=== PATIENT | male | born 1945 | race Caucasian/White ===

== ENCOUNTER → 2018-12-10 08:43 | Outpatient (CLI) | payer OTHER, SELFPAY ==
--- NOTE | 2018-12-10 | DI.ECHO.S_ITS ---
[place] [facility]---------+ [facility] +---------+ : : [address] : : : : [id number] : : : : Phone: [phone]+ Echocardiogram Report + + :Name: EZ MARTINEZ Study Date: 12/10/2018 Height: 74 in : :[facility] Exam Location: [facility] Weight: 195 lb : : Gender: Male BSA: 2.1 m2 : :: 1945 Age: 73 yrs BP: 130/72 mmHg: :Reason For Study: AFIB : : Performed By: Handy Olsen : :Referring: TANISHA HERNANDEZ : + + Interpretation Summary 1) Normal left ventricular thickness, size, wall motion, and systolic function (EF 60-65%). 2) Normal right ventricular size and function. 3) No significant valvular abnormalities. 4) No prior Echo available for comparison. Procedure: A two-dimensional transthoracic echocardiogram with color flow and Doppler was performed. The study quality was technically good. There is no prior echocardiogram noted for this patient. The patient was in normal sinus rhythm during the exam. Left Ventricle: The left ventricle is normal in size. There is normal left ventricular wall thickness. The ejection fraction is estimated to be 60-65%. There are no focal wall motion abnormalities. Right Ventricle: The right ventricle is normal in size and function. Atria: Both atria are normal in size. The interatrial septum is intact with no evidence for an atrial septal defect. Mitral Valve: The mitral valve is normal in structure and function. There is trace mitral regurgitation. Aortic Valve: The aortic valve is trileaflet. The aortic valve is mildly calcified. There is minimally reduced leaflet mobility. There is no aortic valve stenosis. There is trace aortic regurgitation. Tricuspid Valve: The tricuspid valve is normal in structure and function. There is mild tricuspid regurgitation. The right ventricular systolic pressure is estimated to be at least 30 mmHg based on an estimated right atrial pressure of 3 mm Hg. Pulmonic Valve: The pulmonic valve is normal in structure and function. There is trace pulmonic regurgitation. Great Vessels: The aortic root is normal size. The dimensions of the ascending aorta are normal. The pulmonary artery is normal size. The IVC is of normal diameter and collapses greater than 50% with a sniff. This suggests a low right atrial pressure of 3 mm Hg. Pericardium/ Pleura There is no pericardial effusion. There is no pleural effusion. MMode/2D Measurements & Calculations LVIDd: 4.9 cm LVOT diam: 2.2 cm LVIDs: 3.1 cm Ao root diam: 3.2 cm FS: 36.6 % Aortic Jxn: 2.6 cm EPSS: 0.51 cm asc Aorta Diam: 3.1 cm IVSd: 1.00 cm Ao Arch Diam (Prox Trans): 2.6 cm LVPWd: 0.72 cm LV kenyon. diameter/BSA (cm/m^2): 2.3 LV sys. diameter/BSA (cm/m^2): 1.5 LA dimension: 4.5 cm RA long axis: 4.7 cm LA A2 area: 23.3 cm2 RA area: 15.7 cm2 LA A4 area: 21.0 cm2 RA vol: 44.8 ml LA length (vol): 6.2 cm RA : 20.8 ml/m2 LA vol: 66.6 ml IVC diam: 1.4 cm LA vol index: 31.0 ml/m2 Doppler Measurements & Calculations Ao V2 max: 145.6 cm/sec LVOT Max Sarabjit: 90.5 cm/sec Ao V2 mean: 102.8 cm/sec LV V1 max P.3 mmHg Ao max P.5 mmHg LV V1 VTI: 21.4 cm Ao mean P.6 mmHg PATRICE(I,D): 2.3 cm2 Ao V2 VTI: 34.2 cm PATRICE(V,D): 2.3 cm2 sev ratio: 0.63 PATRICE indexed to BSA (cm^2/m^2): 1.1 MV E max sarabjit: 57.4 cm/sec TR max sarabjit: 257.2 cm/sec MV A max sarabjit: 58.7 cm/sec TR max P.5 mmHg MV E/A: 0.98 PA V2 max: 75.2 cm/sec Med Peak E' Sarabjit: 4.0 cm/sec PA V2 mean: 60.7 cm/sec E/E' med: 14.3 PA mean P.5 mmHg Lat Peak E' Sarabjit: 6.2 cm/sec PA pr(Accel): 44.1 mmHg E/E' lat: 9.3 PA Accel Time: 0.08 sec E/e' average: 11.8 MV dec time: 0.28 sec SV(LVOT): 80.2 ml Reading Physician:10:19 AM
== END ==
PROVIDERS: Visit Provider Physician Assistant
DX: I07.1 Rheumatic tricuspid insufficiency (principal); I48.91 Unspecified atrial fibrillation
CPT/HCPCS: 93306